=== PATIENT | female | born 1965 | race Caucasian/White ===

== ENCOUNTER → 2021-03-11 | Outpatient (CLI) | payer OTHER ==
[~2021-03-11] MED LIST: FURO20TA4 PO; OMEP-401 PO; POTA99TA25 PO
--- NOTE | 2021-03-11 13:14 | Diagnostic Imaging Report ---
INDICATION: Right foot pain. TIME OF EXAM: 10:30 AM 3 views of right foot were obtained. Metatarsals and phalanges appear intact. Midfoot and hindfoot are unremarkable apart from a large posterior and plantar calcaneal spurs. No fractures are seen. IMPRESSION: No acute bony abnormality is detected. Dictated by: Dictated on workstation # [id number]
--- NOTE | 2021-03-11 13:15 | Diagnostic Imaging Report ---
INDICATION: Left hand pain. TIME OF EXAM: 10:39 AM 3 views of the left hand were obtained. Distal radius and ulna are intact. Carpus is intact. Metacarpals are unremarkable. Phalanges appear intact. No fractures are seen. IMPRESSION: No acute bony abnormality is detected. Dictated by: Dictated on workstation # [id number]
--- NOTE | 2021-03-11 13:19 | Diagnostic Imaging Report ---
INDICATION: Left wrist pain. TIME OF EXAM: 10:38 AM 3 views of the left wrist were obtained. The distal radius and ulna appear to be intact. Carpus is intact. Metacarpals are unremarkable. No fractures are seen. IMPRESSION: No acute bony abnormality is detected. Dictated by: Dictated on workstation # [id number]
--- NOTE | 2021-03-11 13:21 | Diagnostic Imaging Report ---
INDICATION: Right toe pain. TIME OF EXAM: 10:34 AM 3 views of right toes were obtained. The phalanges appear to be intact. Joint spaces are maintained. No fractures are seen. IMPRESSION: No acute bony abnormality is detected. Dictated by: Dictated on workstation # [id number]
== END ==
LOC: RAD 09:43
PROVIDERS: ATTEND Internal Medicine
DX: M25.532 Pain in left wrist (principal); M79.674 Pain in right toe(s); M79.642 Pain in left hand; M79.671 Pain in right foot
CPT/HCPCS: 73110; 73130; 73630; 73660

== ENCOUNTER 2021-03-12 05:35 | Outpatient (CLI) | payer OTHER ==
[~2021-03-12] VITALS: Ht 165.1 cm; Wt 131.7 kg
[2021-03-12] MEDS ORDERED: OMEP-401 PO (13:46)
[2021-03-12] MEDS ORDERED: POTA99TA25 PO (13:46)
[2021-03-12] MEDS ORDERED: FURO20TA4 PO (13:46)
== END 2021-03-12 14:25 ==
LOC: PREOP 05:35 → MERGE 05:35 → PREOP 14:25
PROVIDERS: ATTEND Internal Medicine
DX: Z01.812 Encounter for preprocedural laboratory examination (principal); K21.9 Gastro-esophageal reflux disease without esophagitis; Z20.822 Contact with and (suspected) exposure to COVID-19
CPT/HCPCS: 87635

== ENCOUNTER 2021-03-14 07:33 | Day surgery (SDC) | payer OTHER ==
--- NOTE | 2021-03-12 16:04 | HISTORY AND PHYSICAL ---
DATE OF SERVICE: EGD HISTORY AND PHYSICAL HISTORY: The patient is a 55-year-old white female referred by Dr. Barnahrt for diagnostic EGD. She reports for the past 7 or 8 years, although it has gotten worse over the past several months, she has had intermittent reflux severe enough that she will wake up coughing and choking at night. She will have chest tightness and cough that will last for several days after a bad episode. She has had no hospitalizations for pneumonia and has been significantly overweight for most of her adult life. She believes that her weight over the last 6 months has been relatively stable. She denies hematemesis and dysphagia and has noted no melena or bright red blood per rectum. She denies associated abdominal pain or nausea. As a recall, she has had no previous EGD or upper GI tract evaluation. She has been on omeprazole for many years with significant worsening of symptoms off of omeprazole that she has recently advised to increase her omeprazole to [address] Barnhart. MEDICATIONS ON ADMISSION: Include omeprazole 20 mg, recently increased to b.i.d., furosemide 20 mg daily, potassium 10 mEq daily and multiple vitamin daily. ALLERGIES: She reports no known drug allergies. PAST SURGICAL HISTORY: She reports no past surgery. PAST MEDICAL HISTORY: Significant for stage II obesity and hypertension. SOCIAL HISTORY: She is employed with no past smoking or drinking history. REVIEW OF SYSTEMS: CONSTITUTIONAL: Denies night sweats, chills, fever, change in weight. GASTROINTESTINAL: As noted in the HPI. CARDIOVASCULAR: Denies chest pain, syncope, presyncope or palpitations. PULMONARY: Reports only after aspiration sounding symptoms at night, she have cough, wheezing and temporary shortness of breath. No history of inhaler use. PHYSICAL EXAMINATION: GENERAL: Reveals a pleasant overweight white female. VITAL SIGNS: Weighs 289 pounds, BMI greater than 40, blood pressure 144/94. HEENT: Unremarkable. Sclerae nonicteric. CHEST: Clear. CARDIOVASCULAR: Reveals a regular rate and rhythm without murmur, S3 or S4. ABDOMEN: Obese, soft, nontender. No mass or organomegaly noted, although obesity significantly diminishes sensitivity. Bowel sounds positive. EXTREMITIES: Reveal no cyanosis, clubbing or edema. ASSESSMENT AND PLAN: For significant reflux symptoms with what sounds like secondary aspiration, the patient is undergoing EGD. This has been despite proton pump inhibitor therapy. I thank you for the referral of this pleasant lady. Job ID: [id number] DocumentID: [id number] Dictated Date: 03/11/2021 08:35:20 Make Up Girl Date: 03/11/2021 09:51:18 Dictated By: VLADIMIR PABLO MD
--- NOTE | 2021-03-14 09:10 | Pre-Op Note & Conscious Sedat ---
Pre-Operative Progress Note H&P Reviewed The H&P was reviewed, patient examined and no changes noted. Date H&P Reviewed: Mar 14, 2021 Time H&P Reviewed: 09:10 Conscious Sedation Pre-Proced ASA Score 2 For ASA 3 and 4: Consider anesthesia and medical clearance. Also, for patients with a history of failed moderate sedation consider anesthesia. Airway Lungs Heart ASA score ASA 1: a normal healthy patient ASA 2: a patient with a mild systemic disease (mid diabetes, controlled hypertension, obesity ASA 3: a patient with a severe systemic disease that limits activity (angina, COPD, prior Myocardial infarction) ASA 4: a patient with an incapacitating disease that is a constant threat to life (CHF, renal failure) ASA 5: a moribund patient not expected to survive 24 hrs. (ruptured aneurysm) ASA 6: a declared brain- patient whose organs are being harvested. For emergent operations, add the letter E after the classification Mallampati Classification Grade 3 Sedation Plan Analgesia, Amnesia, Plan communicated to team members, Discussed options with patient/fam, Discussed risks with patient/fam The patient is an appropriate candidate to undergo the planned procedure, sedation, and anesthesia. The patient immediately re-assessed prior to indication. VLADIMIR PABLO MD Mar 14, 2021 09:10
[2021-03-14] MEDS ORDERED: LIDOCAINE JELLY 2% 6 ML SYRINGE MM PRN (09:45)
[2021-03-14] MEDS ORDERED: LACTATED RINGERS 1,000 ML IV STA (09:45)
[2021-03-14] MEDS ORDERED: HURRICAINE EXT TUBE (BENZOCAINE) XX PRN (09:45)
[2021-03-14] MEDS ORDERED: LACTATED RINGERS 1,000 ML IV ONE (09:59)
[2021-03-14 10:04] VITALS: BP 167/81
[2021-03-14] MEDS ORDERED: MIDAZOLAM 2 MG/2 ML (VERSED) VIAL ONE (11:03)
[2021-03-14] MEDS ORDERED: PROPOFOL INJECTION 50 ML IV ONE (11:03)
[2021-03-14 11:20] VITALS: BP 141/75
[2021-03-14 11:25] VITALS: BP 141/75
[2021-03-14 11:37] VITALS: BP 141/75
--- NOTE | 2021-03-14 12:22 | Anesthesia-General Post-Op ---
MAC Patient Condition Mental Status/LOC: Same as Preop Cardiovascular: Satisfactory Nausea/Vomiting: Absent Respiratory: Satisfactory Pain: Controlled Complications: Absent Post Op Complications Complications None Follow Up Care/Instructions Patient Instructions None needed. Anesthesiology Discharge Order Discharge Order Patient is doing well, no complaints, stable vital signs, no apparent adverse anesthesia problems. No complications reported per nursing. DANGELO BARRIGA CRNA Mar 14, 2021 12:22
--- NOTE | 2021-03-14 17:28 | OPERATIVE REPORT ---
DATE OF SERVICE: EGD SUMMARY INDICATION FOR THE PROCEDURE: Reflux with aspiration. DESCRIPTION OF PROCEDURE: The patient was placed in the left lateral decubitus position. The endoscope was inserted in the oral cavity and under direct visualization, esophagus was intubated. The endoscope was passed down the esophagus through stomach and second portion of the duodenum. Careful inspection was made as the endoscope was withdrawn. FINDINGS: The posterior pharynx, epiglottis, true and false vocal folds were unremarkable except for narrowed posterior hypopharynx due to likely fatty hypertrophy. The proximal and mid esophagus were unremarkable. The Z-line was distinct without evidence for erosive esophagitis. There was a projection of columnar lining extending about 2 cm proximal from the GE junction involving about 30% of the circumference of the esophagus raising the possibility of short segment Lozoya's. A biopsy was obtained and submitted for histopathology. The cardia and fundus of the stomach was unremarkable. There was some mild antral erythema present, that was more diffuse in nature without ulceration or erosion. Biopsy was submitted for histopathology and Helicobacter evaluation. The pylorus, the pyloric channel, the duodenal bulb and second portion of duodenum were unremarkable. ASSESSMENT: 1. There was no evidence for erosive esophagitis on today's study. The findings are suspicious for some lower esophageal sphincter laxity and I cannot rule out the possibility of short segment Lozoya's as noted above a biopsy is pending that should answer this question. If Lozoya's is present, will be dictating an addendum with recommendations for future surveillance EGD interval. Mild antral erythema was present. Biopsies are pending for Helicobacter and histopathology evaluation. 2. The patient did exhibit obstructive breathing even on her side during the procedure. With her body habitus, significant sleep apnea is likely and would recommend sleep test evaluation, which was discussed with the patient. As the patient had questions and does note nonrestorative sleep, an extra 15 minutes of time was spent answering questions that she had about the possibility of sleep apnea. We did discuss that while she does not have evidence for erosive esophagitis, she is clearly refluxing at night aggravated by the fact that she eats later in the evening when she gets off from work. Advised elevating the head of her bed at least 4-6 inches and that she would have less trouble eating a egg buyer meal in the evening a minimum of 3, preferably 4 hours before lying down at night. Job ID: [id number] DocumentID: [id number] Dictated Date: 03/14/2021 12:19:35 Briar Shop Supervisor Date: 03/14/2021 17:27:04 Dictated By: VLADIMIR PABLO MD MTDD
== END 2021-03-14 11:54 | disposition home or self-care (01) ==
LOC: ENDO 07:33 → MERGE 10:45 → ENDO 11:54
PROVIDERS: ATTEND Internal Medicine
DX: K29.50 Unspecified chronic gastritis without bleeding (principal); K21.00 Gastro-esophageal reflux disease with esophagitis, without bleeding; I10 Essential (primary) hypertension; E66.9 Obesity, unspecified; Z79.899 Other long term (current) drug therapy
CPT/HCPCS: 84703

== ENCOUNTER 2021-05-01 05:39 | Outpatient (CLI) | payer OTHER ==
[~2021-05-01] VITALS: Ht 165 cm; Wt 129.5 kg
[2021-05-22] MEDS ORDERED: LEVO150C4 PO (11:07)
[2021-05-22] MEDS ORDERED: METF-398 PO (11:07)
== END 2021-05-22 11:45 ==
LOC: PREOP 05:39
PROVIDERS: ATTEND Internal Medicine
DX: Z01.818 Encounter for other preprocedural examination (principal)

== ENCOUNTER 2021-06-20 06:55 | Day surgery (SDC) | payer OTHER ==
--- NOTE | 2021-04-30 14:34 | HISTORY AND PHYSICAL ---
DATE OF SERVICE: COLONOSCOPY HISTORY AND PHYSICAL DATE OF ADMISSION: 05/09/2021 HISTORY OF PRESENT ILLNESS: The patient is a 55-year-old white female referred by Dr. Barnhart for diagnostic colonoscopy. She was hoping to avoid her first colonoscopy by obtaining a Cologuard test, but it turned out to be positive. Sometimes, she will have a small amount of bright red blood per rectum surrounding intermittent diarrhea. She reports she normally goes 2 to 3 times per day, which is not unusual for her. She denies melena and has had difficulty with keeping her weight down. Reporting no weight loss. She denies abdominal pain. I previously performed EGD evaluation on her last year, which revealed no evidence for peptic ulcer disease with nonerosive esophagitis changes confirmed with biopsy, H. pylori negative. Additional GI history, she has had no melena and denies dysphagia, reflux symptoms have been under control on omeprazole. PAST SURGICAL HISTORY: The patient reports no past surgical history. PAST MEDICAL HISTORY: Significant for obesity and she does take furosemide for likely obesity related edema and potassium with omeprazole. She is on no other prescription medication. 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 FAMILY HISTORY: She has one sister with heart disease in her 50s. Mother of Hodgkin's disease at the age of 26. Father of a heart attack at the age of 56. She is not aware of any family history for GI tract malignancy including colon cancer. REVIEW OF SYSTEMS: CONSTITUTIONAL: Denies night sweats, chills, fever, change in weight. CARDIAC: Denies chest pain, orthopnea, PND or pedal edema. PULMONARY: Denies cough, wheezing or shortness of breath. GASTROINTESTINAL: As noted in the HPI. PHYSICAL EXAMINATION: GENERAL: Reveals a pleasant overweight white female in no acute distress. VITAL SIGNS: Blood pressure 148/90. HEENT: Unremarkable. Sclerae nonicteric. No evidence for pallor. CHEST: Clear to auscultation. CARDIOVASCULAR: Reveals a regular rate and rhythm without murmur, S3 or S4. ABDOMEN: Soft, supple, nontender, and obese. No mass or organomegaly noted. Bowel sounds positive. No bruits appreciated. EXTREMITIES: Reveal no cyanosis, clubbing or edema. ASSESSMENT AND PLAN: The patient is being set up for diagnostic colonoscopy due to positive Cologuard study. Discussed the ramifications of a positive Cologuard and the likelihood of cancer versus neoplasia or normal examination with percentages of each. Prep instructions with Suprep kit were given and questions were answered. The electronic medical record reviewed. I thank you for the referral of this pleasant lady. Job ID: [id number] DocumentID: [id number] Dictated Date: 04/09/2021 16:12:47 Staff Design Engineer Date: 04/09/2021 16:45:08 Dictated By: VLADIMIR PABLO MD
[~2021-06-20] VITALS: Ht 165 cm; Wt 129.5 kg
[~2021-06-20 06:55] MED LIST changes: +LEVO150C4 PO; +METF-398 PO
[2021-06-20] MEDS ORDERED: LACTATED RINGERS 1,000 ML IV STA (07:07)
[2021-06-20] MEDS ORDERED: LACTATED RINGERS 1,000 ML IV ONE (07:07)
[2021-06-20 07:17] VITALS: BP 147/91
--- NOTE | 2021-06-20 07:56 | Pre-Op Note & Conscious Sedat ---
Pre-Operative Progress Note H&P Reviewed The H&P was reviewed, patient examined and no changes noted. Date H&P Reviewed: Jun 20, 2021 Time H&P Reviewed: 07:56 Conscious Sedation Pre-Proced ASA Score 2 For ASA 3 and 4: Consider anesthesia and medical clearance. Also, for patients with a history of failed moderate sedation consider anesthesia. Airway Lungs Heart ASA score ASA 1: a normal healthy patient ASA 2: a patient with a mild systemic disease (mid diabetes, controlled hypertension, obesity ASA 3: a patient with a severe systemic disease that limits activity (angina, COPD, prior Myocardial infarction) ASA 4: a patient with an incapacitating disease that is a constant threat to life (CHF, renal failure) ASA 5: a moribund patient not expected to survive 24 hrs. (ruptured aneurysm) ASA 6: a declared brain- patient whose organs are being harvested. For emergent operations, add the letter E after the classification Mallampati Classification Grade 2 Sedation Plan Analgesia, Amnesia, Plan communicated to team members, Discussed options with patient/fam, Discussed risks with patient/fam The patient is an appropriate candidate to undergo the planned procedure, sedation, and anesthesia. The patient immediately re-assessed prior to indication. VLADIMIR PABLO MD Jun 20, 2021 07:56
[2021-06-20] MEDS ORDERED: MIDAZOLAM 2 MG/2 ML (VERSED) VIAL ONE (08:00)
[2021-06-20] MEDS ORDERED: proPOfol 200 MG/20 ML (DIPRIVAN) VIAL IV ONE (08:00)
[2021-06-20 08:25] VITALS: BP 126/68
[2021-06-20 08:29] VITALS: BP 126/68
[2021-06-20 08:50] VITALS: BP 132/66
--- NOTE | 2021-06-20 10:42 | Anesthesia-General Post-Op ---
MAC Patient Condition Mental Status/LOC: Same as Preop Cardiovascular: Satisfactory Nausea/Vomiting: Absent Respiratory: Satisfactory Pain: Controlled Complications: Absent Post Op Complications Complications None Follow Up Care/Instructions Patient Instructions None needed. Anesthesiology Discharge Order Discharge Order Patient is doing well, no complaints, stable vital signs, no apparent adverse anesthesia problems. No complications reported per nursing. LORY CABRERA CRNA Jun 20, 2021 10:41
--- NOTE | 2021-06-20 12:47 | OPERATIVE REPORT ---
DATE OF SERVICE: COLONOSCOPY SUMMARY INDICATION FOR THE PROCEDURE: Positive Cologuard. DESCRIPTION OF PROCEDURE: The patient was placed in the left lateral decubitus position. Prior to undergoing colonoscopy, a digital rectal evaluation was performed. Anal sphincter tone was normal and the perianal reflex was intact. No abnormalities were noted on digital inspection of the anal canal or distal rectal vault. The colonoscope was then inserted into the rectum and under direct visualization advanced to the cecum. The cecum was identified by identification of the ileocecal valve, cecal strap, and appendiceal orifice. Photographic documentation was obtained. A careful inspection was made as the colonoscope was withdrawn. The quality of prep was good. FINDINGS: There was no evidence for internal or external hemorrhoids and the rectum was unremarkable. Two small sigmoid diverticulum were noted without evidence for diverticulitis. No other sigmoid abnormalities were noted. The descending colon and splenic flexure were unremarkable. Present in the distal transverse colon was an 8 mm sessile adenomatous appearing polyp. It was photographed and biopsied and ablated with no blood loss. Similar polyp was noted in the proximal transverse colon and again biopsied and ablated with no blood loss. The hepatic flexure, ascending colon, and cecum were unremarkable. ASSESSMENT: Two polyps were removed via hot forceps today, the larger one approximately 8 mm in the distal transverse colon. We will await histopathology report. As long as dysplasia is not identified, we would advocate repeat surveillance colonoscopy in three years. I thank you for the referral of this pleasant lady. Job ID: [id number] DocumentID: [id number] Dictated Date: 06/20/2021 08:27:36 Security Installer Date: 06/20/2021 12:46:00 Dictated By: VLADIMIR PABLO MD
== END 2021-06-20 09:18 | disposition home or self-care (01) ==
LOC: ENDO 06:55
PROVIDERS: ATTEND Internal Medicine
DX: D12.3 Benign neoplasm of transverse colon (principal); R19.5 Other fecal abnormalities; K57.30 Diverticulosis of large intestine without perforation or abscess without bleeding; E66.01 Morbid (severe) obesity due to excess calories; Z68.42 Body mass index [BMI] 45.0-49.9, adult
CPT/HCPCS: 88305

== ENCOUNTER → 2022-11-25 | Outpatient (CLI) | payer OTHER ==
--- NOTE | 2022-11-25 17:28 | Diagnostic Imaging Report ---
FOOT, LEFT, 3 VIEWS INDICATION: Left foot pain COMPARISON: None available. TECHNIQUE: Three non-weightbearing views of foot were obtained. FINDINGS: Simple fracture involving the head of the 2nd proximal phalanx has intra-articular extension and mild articular surface depression. No evidence of metatarsal stress fracture. 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 Large plantar calcaneal spur. IMPRESSION: 1. Age-indeterminate fracture of the 2nd proximal phalanx head has intra-articular extension. Dictated by: Dictated on workstation # [id number]
== END ==
LOC: RAD 09:30
PROVIDERS: ATTEND Internal Medicine
DX: S92.912A Unspecified fracture of left toe(s), initial encounter for closed fracture (principal); X58.XXXA Exposure to other specified factors, initial encounter
CPT/HCPCS: 73630